=== PATIENT | female | born 1950 | race Caucasian/White ===

== ENCOUNTER 2023-08-23 10:07 | Emergency (ER) | payer BC, SELFPAY ==
[2023-08-23 10:09] VITALS: BP 149/80; PULSE 82; RESP 18; TEMP 36.7; O2SAT 99; BMI 27.8
--- NOTE | 2023-08-23 10:26 | CRLHL7_ITS ---
For Patients: As a result of the Century Cures Act, medical imaging exams and procedure reports are released immediately into your electronic medical record. You may view this report before your referring provider. If you have questions, please contact your health care provider. Indication: Fall, hit chin Technique: Helical axial sections were obtained through the facial skeleton, mandible and adjacent structures without intravenous contrast material. Data was reformatted not only in axial but also coronal planes. Comparison: None Findings: No fracture is demonstrated in the facial skeleton or mandible. Minimal swelling along the midline mandibular subcutaneous fat may be posttraumatic. The orbits and their contents are normal in appearance. There is no evidence for penetrating injury to the ocular globes. The lenses are situated in their normally expected anterior locations. No radiodense or metallic foreign body is demonstrated. Moderate mucosal thickening in the right maxillary sinus and mild mucosal thickening in the left maxillary sinus. Trace mucosal thickening in the sphenoid sinuses. The frontal sinuses and ethmoid air cells are clear. Rightward deviation of the nasal septum with small leftward septal spur. The visualized portions of the brain are normal in appearance. Impression: 1. No facial bone fracture. 2. Minimal swelling along the midline mandibular subcutaneous fat may be posttraumatic. Please note that the imaging field of view did not include the entire chin soft tissues. 3. Moderate mucosal thickening in the right maxillary sinus and mild mucosal thickening in left maxillary sinus. 4. Rightward deviation of the nasal septum with small leftward septal spur. Please note that all CT scans at this facility use dose modulation, iterative reconstruction, and/or weight-based dosing when appropriate to reduce radiation dose to as low as reasonably achievable. Dictated by Pedro Mojica MD @ 08/23/2023 12:08:57 PM (Electronically Signed)
--- NOTE | 2023-08-23 10:26 | CRLHL7_ITS ---
For Patients: As a result of the Century Cures Act, medical imaging exams and procedure reports are released immediately into your electronic medical record. You may view this report before your referring provider. If you have questions, please contact your health care provider. INDICATION: Fall, hit chin COMPARISON: none TECHNIQUE: A CT volumetric acquisition was performed of the brain without IV contrast. Please note that all CT scans at this facility use dose modulation, iterative reconstruction, and/or weight-based dosing when appropriate to reduce radiation dose to as low as reasonably achievable. FINDINGS: The CT images reveal a normal appearance of the cerebral ventricles and basal cisterns. There is no evidence of intracranial hemorrhage, tissue infarction or mass effect. The mastoid air cells and middle ear cavities are clear. The calvarium appears intact. There is normal aeration of the visualized paranasal sinuses. IMPRESSION: Negative head CT. Please note that all CT scans at this facility use dose modulation, iterative reconstruction, and/or weight-based dosing when appropriate to reduce radiation dose to as low as reasonably achievable. Dictated by Pedro Ramos MD @ 08/23/2023 12:08:35 PM (Electronically Signed)
--- NOTE | 2023-08-23 11:37 | ED.GENADULT ---
HPI - General Adult General Date Seen: 08/23/23 Chief complaint: Laceration/Wound Stated complaint: Fall, chin lac Time Seen by Provider: 08/23/23 10:10 Source: patient Mode of arrival: ambulatory Limitations: no limitations History of Present Illness HPI narrative: Patient is a 73-year-old female with a history of bilateral hip replacements, high blood pressure presenting to the emergency department for a fall and laceration under her chin. She states she was running to the gym because it was cold outside when she slipped and fell landing forward. She total her head backwards while she was falling in attempt to keep herself from hitting her face. She did hit her chin on the asphalt. She then went into the gym was feeling all right but recommended to come to the emergency department for evaluation. She is not on any blood thinners. Denies lightheadedness, dizziness, headache, weakness, numbness. Her is here with her aunt she states she is acting normally. The bleeding is controlled at this time. No other concerns noted. Related Data Home Medications Medication Instructions Recorded Confirmed betamethasone, augmented 0.05 % topical 08/23/23 lotion estradiol 10 mcg vaginal tablet 10 mcg vaginal 2XW 08/23/23 08/23/23 losartan 100 mg tablet 100 mg PO DAILY 08/23/23 08/23/23 losartan 50 mg tablet 50 mg PO DAILY 08/23/23 08/23/23 metronidazole 0.75 % topical cream 1 applic topical BID 08/23/23 08/23/23 minoxidil 2.5 mg tablet 1.25 mg PO DAILY 08/23/23 08/23/23 pravastatin 20 mg tablet 20 mg PO QPM 08/23/23 08/23/23 tacrolimus 0.1 % topical ointment topical QPM 08/23/23 Allergies Allergy/AdvReac Type Severity Reaction Status Date / Time lactose Allergy Mild bloated, Verified 08/23/23 10:15 diarrhea Review of Systems Status of ROS: Reports: 10 or more systems reviewed and unremarkable except as noted in History and below [facility] Medical History Rosacea ?L71.9 - Rosacea, unspecified (ICD-10) Hair loss ?L65.9 - Nonscarring hair loss, unspecified (ICD-10) Hypertension ?I10 - Essential (primary) hypertension (ICD-10) Hyperlipemia ?E78.5 - Hyperlipidemia, unspecified (ICD-10) Social History Smoking Status: Former smoker What tobacco products do you use: cigarettes Smoking packs per day: 2 Smoking cigarettes per day: 40.0 Years smoked: 20 Smoking pack-years: 40.00 Do you use any of these nicotine containing products: None Second hand tobacco smoke exposure: No How often do you have a drink containing alcohol: 2-3 times a week AUDIT-C Alcohol total score: 3 Non-prescribed substance use: denies use Exam Narrative: Exam Narrative: Const: Well-nourished, Well-developed, in mild distress Eyes: PERRL, no conjunctival injection, and symmetrical lids HENT: Atraumatic external nose and ears. Moist mucous membranes. Small 0.5 cm laceration underneath the chin Neck: Symmetric, trachea midline, No thyromegaly. CVS: RRR, No murmurs or gallops. Peripheral pulses 2+ and equal in all extremities RESP: Unlabored respiratory effort. Clear to auscultation bilaterally. GI: Nontender/Nondistended, No rebound or guarding. MSK:Extremities w/o deformity, Normal Active ROM Skin: Warm, Dry. No rashes. Neuro: Normal Muscle tone, No focal neurological deficits. Psych: Awake, Alert, & Oriented x3. Appropriate mood and affect. Const: Vital Signs, click to edit/add: Vital Signs - 24 hr 08/23/23 10:09 Temperature 98.1 F Pulse Rate [Pulse Oximeter] 82 Respiratory Rate 18 Blood Pressure [Ri ght Upper Arm] 149/80 H Pulse Oximetry 99 Oxygen Delivery Me thod Room Air Course Vital Signs Vital signs: Initial Vital Signs Temperature 98.1 F 08/23/23 10:09 Temperature Source Temporal Artery Scan 08/23/23 10:09 Pulse Rate 82 08/23/23 10:09 Respiratory Rate 18 08/23/23 10:09 Blood Pressure 149/80 H 08/23/23 10:09 Blood Pressure Mean 103 08/23/23 10:09 Blood Pressure Position Sitting 08/23/23 10:09 Pulse Oximetry 99 08/23/23 10:09 Oxygen Delivery Method Room Air 08/23/23 10:09 Vital Signs Temperature 98.1 F 08/23/23 10:09 Pulse Rate 82 08/23/23 10:09 Respiratory Rate 18 08/23/23 10:09 Blood Pressure 149/80 H 08/23/23 10:09 Pulse Oximetry 99 08/23/23 10:09 Oxygen Delivery Method Room Air 08/23/23 10:09 Temperature 98.1 F 08/23/23 10:09 Pulse Rate 82 08/23/23 10:09 Respiratory Rate 18 08/23/23 10:09 Blood Pressure 149/80 H 08/23/23 10:09 Pulse Oximetry 99 08/23/23 10:09 Oxygen Delivery Method Room Air 08/23/23 10:09 Medical Decision Making MDM Narrative Medical decision making narrative: Patient 73-year-old female presenting to the emergency department after a fall. Based on her description sounds like it was a mechanical fall. There is no lightheaded or dizziness associated with it before or after the fall. She feels normal at this time. Does not have any neurological symptoms but due to her age we will do a head and facial bones CT to make sure to not cause any small bleeding or fractures. She is not having any neck pain and has full range of motion at this time and I believe a neck CT is necessary. CT has returned showing no concerning abnormalities. I fix her laceration with skin glue after talking to her about doing glue versus stitches. She tolerated this well. Patient we discharged home and she is agreeable with this plan Imaging Data CT scan facial bones: Radiologist's impression: Indication: Fall, hit chin Technique: Helical axial sections were obtained through the facial skeleton, mandible and adjacent structures without intravenous contrast material. Data was reformatted not only in axial but also coronal planes. Comparison: None Findings: No fracture is demonstrated in the facial skeleton or mandible. Minimal swelling along the midline mandibular subcutaneous fat may be posttraumatic. The orbits and their contents are normal in appearance. There is no evidence for penetrating injury to the ocular globes. The lenses are situated in their normally expected anterior locations. No radiodense or metallic foreign body is demonstrated. Moderate mucosal thickening in the right maxillary sinus and mild mucosal thickening in the left maxillary sinus. Trace mucosal thickening in the sphenoid sinuses. The frontal sinuses and ethmoid air cells are clear. Rightward deviation of the nasal septum with small leftward septal spur. The visualized portions of the brain are normal in appearance. Impression: 1. No facial bone fracture. 2. Minimal swelling along the midline mandibular subcutaneous fat may be posttraumatic. Please note that the imaging field of view did not include the entire chin soft tissues. 3. Moderate mucosal thickening in the right maxillary sinus and mild mucosal thickening in left maxillary sinus. 4. Rightward deviation of the nasal septum with small leftward septal spur. Please note that all CT scans at this facility use dose modulation, iterative reconstruction, and/or weight-based dosing when appropriate to reduce radiation dose to as low as reasonably achievable. Dictated by Pedro Mojica MD @ 08/23/2023 12:08:[address] scan - head: Radiologist's impression: INDICATION: Fall, hit chin COMPARISON: none TECHNIQUE: A CT volumetric acquisition was performed of the brain without IV contrast. Please note that all CT scans at this facility use dose modulation, iterative reconstruction, and/or weight-based dosing when appropriate to reduce radiation dose to as low as reasonably achievable. FINDINGS: The CT images reveal a normal appearance of the cerebral ventricles and basal cisterns. There is no evidence of intracranial hemorrhage, tissue infarction or mass effect. The mastoid air cells and middle ear cavities are clear. The calvarium appears intact. There is normal aeration of the visualized paranasal sinuses. IMPRESSION: Negative head CT. Please note that all CT scans at this facility use dose modulation, iterative reconstruction, and/or weight-based dosing when appropriate to reduce radiation dose to as low as reasonably achievable. Dictated by Pedro Ramos MD @ 08/23/2023 12:08:35 PM Discharge Plan Discharge Clinical Impression: Laceration Patient Disposition: Home, Self-Care Condition: Stable Instructions: Skin Adhesive Care (ED) Additional Instructions: The glue will dissolve on its own.. For next 6 months, once fluids gone, whenever you goes outside put a tab of sunscreen over the laceration site to improve scar appearance. Topical antibiotics are not necessary at this time. Patient can shower but do not scrub the area for at least 1 week. Prescriptions: No Action losartan 50 mg tablet 50 mg PO DAILY minoxidil 2.5 mg tablet 1.25 mg PO DAILY betamethasone, augmented 0.05 % lotion topical tacrolimus 0.1 % ointment topical QPM metronidazole 0.75 % cream 1 applic topical BID pravastatin 20 mg tablet 20 mg PO QPM losartan 100 mg tablet 100 mg PO DAILY estradiol 10 mcg tablet 10 mcg vaginal 2XW Follow Up/Referrals: Malgorzata Altman MD [Primary Care Provider] - Stand Alone Forms: [facility] Info Instructions Procedures Laceration Chin: Name of person performing procedure: Cuco Jeffers Site: face (Chin) Size (cm): 0.5 Description: linear and clean Depth: simple, single layer Pre-repair: wound explored, irrigated extensively and deep structures intact Skin layer closed with: other (Dermabond)
== END 2023-08-23 12:37 | disposition home or self-care (01) ==
PROVIDERS: Emergency Provider Student in an Organized Health Care Education/Training Program; PCP Family Medicine
DX: S01.81XA Laceration without foreign body of other part of head, initial encounter (principal); W00.0XXA Fall on same level due to ice and snow, initial encounter
CPT/HCPCS: 12011; 70450; 70486; 99283

== ENCOUNTER 2025-06-15 22:35 | Emergency (ER) | payer BC, SELFPAY ==
--- OUTSIDE RECORDS SUMMARY | 2025-06-15 22:37 | XMS_ITS | Clinical Summary ---
Author Organization [facility] Address [address] [place] [address] Care Team Providers Care Steam Press Tender Name Role Phone Deanna Ramesh Unavailable [phone] Austen Pretty MD Unavailable [phone] AnupamaMalgorzata almanzar MD Primary Care Provider Allergies Active Allergy Reactions Criticality Noted Date Comments Lactose GI Upset 04/29/2013 blows up like a balloon and have gas Pt states. Medications multivitamin (MVI) tablet Take 1 tablet by mouth once daily. 0 7 Active calcium carbonate-vit D3, 600 mg-400 units, (CALTRATE PLUS 600 MG-400 UNIT TABLET) tablet Take 1 Tab by mouth. Active betamethasone,augm ented dipropionate 0.05% (DIPROLENE LOTION 0.05%) lotion APPLY LOTION TWICE DAILY ON MONDAY, MONDAY AND Monday 3 Active minoxidiL (LONITEN) 2.5 mg tab Take 1.25 mg by mouth once daily. 3 Active tacrolimus 0.1% (PROTOPIC) 0.1 % ointment APPLY TO SCALP AREA AT BEDTIME 3 Active metroNIDAZOLE 0.75 % cream Apply topically to affected area(s) two times daily. 4 Active acyclovir (ZOVIRAX) 800 mg tabletIndications: Oral herpes Take 1 Tablet (800 mg) by mouth three times daily. 30 Tablet 5 4 Active estradioL (VAGIFEM) 10 mcg tab vaginal tabletIndications: Menopause INSERT 1 TAB IN VAGINA TWICE A WEEK MONDAY AND MONDAY 26 Tablet 4 4 Active losartan (COZAAR) 50 mg tabletIndications: Hypertension, unspecified type Take 1 Tablet (50 mg) by mouth once daily. 90 Tablet 3 4 Active pravastatin (PRAVACHOL) 40 mg tabletIndications: Hyperlipidemia, unspecified hyperlipidemia type Take 1 Tablet (40 mg) by mouth at bedtime. 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 Pretty DDD (degenerative disc disease), lumbar 12/05/19 Overview (12/05/2012): Slight scoliosis convexed to the right Mixed hyperlipidemia 10/13/2011 Overview (04/29/2013): Fish Oil and Flax seeds, discontinued statin due to leg pain Chronic constipation 10/11/2011 Overview (04/29/2013): She has baseline of constipation however improving the past 2 months. HTN (hypertension) 10/11/2011 Overview (04/29/2013): Pt takes lisinopril daily Oral herpes 10/11/2011 Overview (04/29/2013): last reocurrence 1 month ago Acyclovir PRN Resolved Problems Problem Noted Date Diagnosed Date Resolved Date Prepatellar bursitis left knee 08/22/2013 03/12/2014 Low back pain 07/28/2011 04/29/2013 Encounters Date Type Department Care Team Description 05/07/2025 8:20 AM CDT Ancillary Procedure [facility] [address] [place] [address] 05/06/2025 Travel 03/27/2025 Telephone [facility] [address] [facility] [place] [phone] Shelli Martinez AuD Questions (hearing aide supplies ) 03/25/2025 9:45 AM CDT Office Visit [facility] [address] [place] [address] Jerald Sevilla, LIV Follow Up (Right great toenail concern) 03/24/2025 Travel 03/24/2025 Telephone [facility] [address] [place] [address] Jerald Sevilla DPCarla Questions (Toe Concerns) from Last 3 Months Immunizations Immunization Administration Dates Next Due COVID-19 vaccine (AT [employer] NTAffectiva 30mcg/0.3mL) DAJUAN KIM 08/11/2021,01/15/2021,12/25/2020 Influenza A (H1N1), Inactivated 10/21/2009 Influenza, High-dose Inactivated 09/13/2016,09/23 Influenza, IIV3 (Age 6-35 mos) 07/11/2011 Influenza, IIV3 (Age >=3 years) 10/11/2013,10/12,07/11/2011 Influenza, IIV4 10/14/2014 Influenza, Inactivated AIIV4 (Age 65+ Years) Preserv Free 07/26/2023,07/09/2022,07/26/2021 Influenza, Inactivated IIV3 (Age 65+ Years) Preserv Free 07/08/2024,07/12/2020,09/27/2019,07/16,09/19/2017 Pneumococcal Conj 20-valent (Prevnar 20) 11/01/2024 Pneumococcal Poly,23-Valent (Pneumovax) 01/31/2017 Pneumococcal conj 13-Valent (Prevnar 13) 10/20/2015 RSV, Bivalent Vaccine Recons tituted (Abrysvo 120MCG/0.5mL) 11/01/2024 Tdap 10/09/2023,10/11/2013,10/23/2003 Zoster (Shingrix-RZV, recombinant) 01/01/2019, Zoster (Zostavax-ZVL, live) 10/12/2012 Family History Medical History Relation Name Comments Other Father Parkinson's Cancer-colon Maternal Grandmother Cancer-colon Mother Diabetes Mother Hyperlipidemia Mother Other Mother dementia Stroke Mother Cancer-breast Paternal Grandmother Diabetes Sister 1 plus cousin Other Sister 2 2 with spinal s tenosis Anesthesia Problem No Family History Blood Disease No Family History Relation Name Status Comments Father (Age 90) Parkinson' s Maternal Grandmother Mother (Age 88) Paternal Grandmother Sister 1 Sister 2 Social History Tobacco Use Types Packs/Day Years Used Date Smoking Tobacco: Former Cigarettes 2 18 0 10/23/1966 - 10/23/1984 Smokeless Tobacco: Never Tobacco Cessation:Counseling Given: Yes Alcohol Use Standard Drinks/Week Comments Yes 0 (1 standard drink = 0.6 oz pure alcohol) 0-5 glasses of wine several times per week PHQ-2 Answer Date Recorded PHQ-2 TOTAL SCORE 0 10/09/2023 Social Connections Answer Date Recorded Do you often feel lonely or isolated from those around you? 0 10/18/2024 Financial Resource Strain Answer Date R ecorded Difficulty of Paying Living Expenses 3 10/18/2024 Difficulty of Paying Living Expenses Not on file 10/18/2024 Food Insecurity Answer Date Recorded Do you worry your food will run out before you are able to buy more? 1 10/18/2024 Transportation Needs Answer Date Record ed Does lack of transportation keep you from medica l appointments? 1 10/18/2024 Does lack of transportation keep you from work, meetings or getting things that you need? 1 10/18/2024 Housing Stability Answer Date Recorded What is your housing situation today? 1 10/18/2024 Utilities Answer Date Recorded Do you have trouble paying f or utilities (for example, heat, electricity, water, phone)? 1 10/18/2024 Comments No Sex and Gender Information Value Date Recorded Sex Assigned at Not on file Legal Sex Female 5:25 AM CHILD AND ADOLESCENT PSYCHIATRIST Gender Identity Not on file Sexual Orientation Not on file Occupation Industry Job Start Date Job End Date Not on file Not on file Not on file Not on file Obstetrics History Para Term AB IAB SAB Ectopic Multiple Livin g Live Births 2 2 2 2 Date Outcome GA Total Labor Labor/2nd/3rd Weight Sex Type Anes PTL Chiquita A1 A5 Name Clin 35w0d 33w0d Last Filed Vital Signs Vital Sign Reading Time Taken Comments Blood Pressure 120/60 02/28/2025 11:52 AM CDT Pulse 94 02/28/2025 11:52 AM CDT Temperature 37.2 C (99 F) 03/27/2020 2:44 PM CDT Respiratory Rate 20 05/03/2013 12:1 5 PM CDT Oxygen Saturation 98% 02/28/2025 11: 52 AM CDT Inhaled Oxygen Concentration - - Weight 80.2 kg (176 lb 12.8 oz) 10/18/2024 9:52 AM CHILD AND ADOLESCENT PSYCHIATRIST Height 167.6 cm (5' 6) 10/18/2024 9:52 AM CHILD AND ADOLESCENT PSYCHIATRIST Body Mass Index 28.54 10/18/2024 9:52 AM CHILD AND ADOLESCENT PSYCHIATRIST Plan of Treatment Health Maintenance Due Date Last Done Comments Depression screening for age 12+ 10/11/2024 10/11/2023, 10/09/2023, 10/04/2021, Additional history exists COVID-19 vaccine series ( season) 2025 07/08/2024, 08/07/2023, 07/09/2022, Additional history exists Influenza Vaccine (#1) 2025 , 07/26/2023, 07/09/2022, Additional history exists Colonoscopy through age 75 08/04/202508/04, 08/04/2020, 07/29/2015, Additional history exists BMI (ht and wt on same day) for age 18+ 10/18/2025 10/18/2024, 09/16/2024, 01/04/2024, Additional history exists Lipids for age 45-75 10/18/2029 10/18/2024, 10/09/2023, 10/05/2022, Additional history exists Tetanus booster 10/09/2033 10/09/2023, 09/23, 10/23/2003, Additional history exists Zoster (shingles) series for age 50+ Completed 01/01/2019, 10/08/2018, 10/12/2012 Hepatitis C screening for age 18-79 Completed 10/31/2019 DEXA/DXA scan for age 65+ Completed 2022, 09/27/2018, 10/22/2013 Pneumococcal series for age 50+ Completed 11/01/2024, 01/31/2017, 10/20/2015 RSV vaccine for adults or Completed 11/01/2024 Hepatitis B series for 19+ Aged Out N o longer eligible based on patient's age to complete this topic Medical Devices Implanted Type Area Telecasting Engineer Device Identifier Shelf Expiration Date Model / Serial / Lot [id number] 165bone Canclls Crushed 30cc [[id number]] Implanted:Qty: 1 on 04/30/[address] [facility] [employer] 12/07/2015 [id number] / [id number] / Screw Open Polyaxial 6.5x45mm 5.5mm Titnm - [id number] Implanted:Qty: 4 on 04/30/2013 by Austen Pretty MD at [facility] N/A: Spine [employer]ine [id number] # / / Implnt Open Closure Top 5.5mm Titnm Nichelle - [id number] Implanted:Qty: 4 on 04/30/2013 by Austen Pretty MD at [facility] N/A: Spine [employer] Spine 3301-1# / / Melo Pre-Bent 5.5x40mm Blue Titnm - [id number] Implanted:Qty: 2 on 04/30/2013 by Austen Pretty MD at [facility] N/A: Spine [employer] Spine [id number]# / / Procedures Procedure Name Priority Date/Time Associated Diagnosis Comments XR MAMMO LISA BILAT SCREEN Routine 05/07/2025 8:37 AM CDT Visit for screening mammogram LIPID PANEL W REFLEX MEASURED LDL Routine 10/18/2024 10:41 AM CHILD AND ADOLESCENT PSYCHIATRIST Hyperlipidemia, unspecified hyperlipidemia type XR DXA BONE DENSITY PERIPHERAL Routine 10/18/2023 8:52 AM CHILD AND ADOLESCENT PSYCHIATRIST Menopause COLONOSCOPY 08/04/2020 8:31 AM CDT ANTI HCV Routine 10/31/2019 8:18 AM CHILD AND ADOLESCENT PSYCHIATRIST Encounter for hepatitis C screening test for low risk patient from Last 3 Months or Most Recently Relevant to Health Maintenance Results * XR MAMMO LISA BILAT SCREEN (05/07/2025 8:37 AM CDT) Anatomical Region Laterality Modality BREASTS, Breast Left, Breast Right Bilateral Mammography Impressions 05/07/2025 3:40 PM CDT There is no radiographic evidence for malignancy. Recommend annual mammograms. MAMMOGRAM ASSESSMENT: ACR 1 Negative PATIENTS: You will also receive a letter with your examination results in an easy to read format. If you have questions about your results, please contact your referring provider. Narrative 05/07/2025 3:40 PM CDT For Patients: As a result of the Century Cures Act, medical imaging exams and procedure reports are released immediately into your electronic medical record. You may view this report before your referring provider. If you have questions, please contact your health care provider. XR MAMMO LISA BILAT SCREEN [[id number]] CLINICAL HISTORY: This is an asymptomatic 74 y.o. patient. INDICATION FOR EXAM: Mammogram Screening. TECHNIQUE: CC and MLO views were obtained. This study was evaluated with the assistance of Computer-Aided Detection. Breast Tomosynthesis was used in interpretation. COMPARISON FILM: Yes 05/06/24 [facility] 04/27/23 [facility] FINDINGS: There are scattered areas of fibroglandular density. There are no dominant masses, suspicious micro calcifications or areas of architectural distortion. us Malgorzata Altman MD MAMMO Final R esult * (ABNORMAL) LIPID PANEL W REFLEX MEASURED LDL (10/18/2024 10:41 AM CHILD AND ADOLESCENT PSYCHIATRIST) CHOLESTEROL, TOTAL 195 <200 mg/dL [facility] HDL CHOLESTEROL 59 > OR = 50 mg/dL [facility] TRIGLYCERIDES 143 <150 mg/dL [facility] LDL-CHOLESTEROL 110(H) mg/dL (calc) [facility] Comment: Reference range: <100 Desirable range <100 mg/dL for primary prevention; <70 mg/dL for patients with CHD or diabetic patients with > or = 2 CHD risk factors. LDL-C is now calculated using the Candice calculation, which is a validated novel method providing better accuracy than the Friedewald equation in the estimation of LDL-C. Hay SS et al. AGNIESZKA. 2013;310(19): 9034-3390 (http://education.Eyewitness Surveillance/faq/JED931) CHOL/HDLC RATIO 3.3 <5.0 (calc) [facility] NON HDL CHOLESTEROL 136(H) <130 mg/dL (calc) [facility] Comment: For patients with diabetes plus 1 major ASCVD risk factor, treating to a non-HDL-C goal of <100 mg/dL (LDL-C of <70 mg/dL) is considered a therapeutic option. Blood BLOOD SPECIMEN / Unknown 10/18/2024 10:41 AM CHILD AND ADOLESCENT PSYCHIATRIST 10/18/2024 10:42 AM CHILD AND ADOLESCENT PSYCHIATRIST Malgorzata Altman MD CHEMISTRY Final R esult [employer] [facility] [address] [place] [address], [facility] [address] [place] [address] * XR DXA BONE DENSITY PERIPHERAL (10/18/2023 8:52 AM CHILD AND ADOLESCENT PSYCHIATRIST) Anatomical Region Laterality Modality ARMS Other Impressions 10/18/2023 4:45 PM CHILD AND ADOLESCENT PSYCHIATRIST Normal bone density. RECOMMENDATIONS: The National Osteoporosis Foundation recommends pharmacologic treatment for patients with T-scores of -2.5 or less, patients with prior history of fragility fractures, or patients with 10-year probability of greater than 3% at hips or greater than 20% of suffering major osteoporotic fractures. Recommend continued optimization of calcium and vitamin D intake through dietary means and/or supplementation and regular exercise. Repeat scan recommended in 3-5 years. Leslie Chavez PA-C [facility] 10/18/2023 Narrative 10/18/2023 4:45 PM CHILD AND ADOLESCENT PSYCHIATRIST For Patients: Results are automatically released to your [facility] ([employer]) account once available, in compliance with federal regulations. This means that you may see your results before your provider has had a chance to review them. Please allow 2-3 business days for your provider to comment on the results. XR DXA Bone Mineral Density (BMD) EXAM LOCATION: [address] [address] PATIENT NAME: Joi Saravia DATE OF : 1950 EXAM DATE: 10/18/2023 REQUESTING PROVIDER: Malgorzata Altman MD GENDER AT : female HEIGHT: 5' 6.25 (10/09/2023) WEIGHT: 173 lb 3.2 oz (10/09/2023) MENOPAUSAL STATUS: Postmenopausal RACE/ETHNICITY: White RISK FACTORS: Smoking (prior) and White Race CURRENT MEDICATION FOR BONE LOSS: NONE INDICATION: Post-Menopause and Follow-up of normal DXA COMPARISON DATE(S): 2018 DXA scans are compared to prior studies for a patient only when the two (or more) studies were performed on the same scanner. It is not possible to compare data generated on one scanner to data from another because there are not standards in DXA equipment. This applies even if the two scanners are made by the same yeast fermentation attendant. PROCEDURE: Dual-energy x-ray absorptiometry performed with routine technique. Reporting is completed in the form of a T-score. The T-score represents the standard deviation from peak bone mass based on young healthy adult. A Z-score is used for diagnosis in premenopausal women, and for men under the age of 50. FINDINGS RESULT FOREARM Left Forearm distal radius BMD: 0.791 g/cm2 T-Score: - 0.9 Z-Score: + 1.2 Change from prior in 2018: Decrease 0.100%. WHO criteria: Normal: T-score at or above -1 SD Osteopenia: T-score between -1.1 and -2.4 SD Osteoporosis: T-score at or below -2.5 SD us Malgorzata Altman MD DEXA Final R esult * COLONOSCOPY (08/04/2020 8:31 AM CDT) 08/04/2020 8:31 AM CDT Narrative Transcriptions Hay Leung MD - 08/04/2020 9:21 AM CDT Patient Name: Joi Saravia Procedure Date: 08/04/2020 Gender: Female Date of : 1950 Admit Type: Outpatient Procedure: Colonoscopy Proceduralist: Hay Leung MD , Bre Hutchins (Nurse) Indications/Pre-Op Diagnosis: Surveillance: Personal history ofadenomatous polyps on last colonoscopy 5 years ago, Last colonoscopy: July 2015 Medications: Fentanyl 200 micrograms IV, Midazolam 2 mgIV, The level of sedation administered wasmoderate Procedure Description: The patient had risks, benefits and alternatives explained to andgave informed consent. The patient had a stable cardiopulmonary status and judged an adequate candidate for conscious sedation. The [id number] was passed through the anus and advanced tothe cecum, identified by appendiceal orifice and ileocecal valve. The colonoscopy was performed without difficulty. The patient toleratedthe procedure well. The quality of the bowel preparation was good. The ileocecal valve, appendiceal orifice, and rectum were photographed. Complications: No immediate complications. Estimated Blood Loss & Specimen: Estimated blood loss: none. Specimen collected - Yes and sent to Laboratory Findings: The perianal and digital rectal examinations were normal. A 3 mm polyp was found in the ascending colon. The polyp was sessile. The polyp was removed with a cold biopsy forceps. Resection and retrieval were complete. The exam was otherwise without abnormality on direct and retroflexion views. Impressions/Post-Op Diagnosis: - One 3 mm polyp in the ascending colon, removed with a cold biopsy forceps. Resected and retrieved. - The examination was otherwise normal on direct and retroflexionviews. Recommendation: - Patient has a contact number available for emergencies. The signsand symptoms of potential delayed complications were discussed with the patient. Return to normal activities tomorrow. Written discharge instructions were provided to the patient. - Resume previous diet. - Continue present medications. - Await pathology results. - Repeat colonoscopy in 5 years for surveillance. Moderate Sedation: Moderate (conscious) sedation was administered by the endoscopy nurse and supervised by the endoscopist. The following parameters were monitored: oxygen saturation, heart rate, respiratory rate, blood pressure, adequacy of pulmonary ventilation and reponse to care. Please refer to the the medical center'ts medical record flowsheets and nursing notes for moderate sedation details. Total physician intraservice time was 20 minutes. Hay Leung MD 08/04/2020 9:21:39 AM This report has been signed electronically. Note Initiated On: 08/04/2020 8:31 AM Procedure Code(s): --- Professional --- 25374, Colonoscopy, flexible; with biopsy, single or multiple Diagnosis Code(s): --- Professional --- Z86.010, Personal history of colonicpolyps K63.5, Polyp of colon CPT copyright 2019 [employer]. All rights reserved. The codes documented in this report are preliminary and upon fabric awning repairer reviewmay be revised to meet current compliance requirements. Scope In: 9:00:41 AM Scope Withdrawal Time 0 hours 9 minutes 12 seconds Scope Out: 9:18:15 AM us Hay Leung MD PROCEDURE ORD Final Res ult * ANTI HCV (10/31/2019 8:18 AM CHILD AND ADOLESCENT PSYCHIATRIST) HEPATITIS C ANTIBODY Non-React ernesto Non-React ernesto 10/31/2019 2:00 PM CHILD AND ADOLESCENT PSYCHIATRIST [facility] Comment:Antibodies to HCV no t detected; does not exclude the possibility of exposure to HCV. Blood BLOOD SPECIMEN / Unknown Venipuncture / Unknown 10/31/2019 8:18 AM CHILD AND ADOLESCENT PSYCHIATRIST 10/31/2019 8:21 AM CHILD AND ADOLESCENT PSYCHIATRIST us Malgorzata Altman MD SEND OUTS Final R esult [facility] [address] [place] [address], [place] from Last 3 Months or Most Recently Relevant to Health Maintenance Insurance [facility] MEDIC[facility] PART A HB ONLY BLUE [facility] WC WORKERS COMP Member Subscriber Plan / Payer (Ef fective 2009-Present) Name:Joi Alan Relation to Subscriber:Employee Name:[employer] Date of :2000 (Home) (Work) Address: [place] [address] Payer ID:Not on file Group ID:Not on file Type:Not on file rickey castellanos Address: [facility] [address] [place] [address] [employer] [facility] FED EMP * Guarantor: [facility] CONTRACT,[facility] 2011 Account Type Relation to Patient Date of Phone Billing Address Contract [address] [address] Advance Directives Documents on File Type Date Recorded Patient Coil Winder Strap Expl anation Healthcare Directive 05/07/2013 11:15 AM * Full Code (Latest Code Status on File) Date Activated Date Inactivated Comments 04/30/2013 2:53 PM 05/03/2013 6:09 PM * Full Code Date Activated Date Inactivated Comments 04/30/2013 6:55 AM 04/30/2013 2:53 PM Care Teams Steam Press Tender Relationship Specialty Start Date End Date Malgorzata Altman MD [address] [place] [address] PCP - General Family Practice 09/27/18 Deanna Ramesh AuD Audiology 10/22/13 Austen Pretty MD Surgery - Orthopedics 10/14/14
--- OUTSIDE RECORDS SUMMARY | 2025-06-15 22:37 | XMS_ITS | Clinical Summary ---
Author Organization [place] Address [address] [facility] [place] [address] Care Team Providers Care Resolution Expert Name Role Phone [facility], [facility] Primary Care Provider Allergies Active Allergy Reactions Criticality Noted Date Comments Lactose 09/01/2017 Medications estradiol (VAGIFEM) 10 MCG TABS vaginal tablet INSERT 1 TABLET INTO THE VAGINA EVERY MONDAY AND MONDAY. Will call for refill 6 Active losartan (COZAAR) 50 MG tablet Take 50 mg by mouth daily 8 Active simvastatin (ZOCOR) 20 MG tablet Take 20 mg by mouth At Bedtime 8 Active pantoprazole (PROTONIX) 40 MG EC tablet Take 1 tablet by mouth 2 times daily (before meals) 8 Active acyclovir (ZOVIRAX) 800 MG tablet Take 800 mg by mouth 3 times daily as needed for cold sore treatment 8 Active calcium carbonate 600 mg-vitamin D 400 units (CALTRATE) 600-400 MG-UNIT per tablet Take 1 tablet by mouth 2 times daily ADMIN AT LUNCH AND at bedtime PER PATIENT Active Family History Medical History Relation Comments Parkinsonism Father Diabetes Mother Relation Status Comments Father Mother Social History Tobacco Use Types Packs/Day Years Used Date Smoking Tobacco: Never Assessed Comments Unknown Sex and Gender Information Value Date Recorded Sex Assigned at Not on file Legal Sex Female 4:35 AM HOSPITALIST MEDICAL DIRECTOR Gender Identity Not on file Sexual Orientation Not on file Last Filed Vital Signs Vital Sign Reading Time Taken Comments Blood Pressure 120/62 11/05/2018 10:17 AM HOSPITALIST MEDICAL DIRECTOR Pulse 64 11/04/2018 11:48 AM HOSPITALIST MEDICAL DIRECTOR Temperature 36.3 C (97.3 F) 11/05/2018 10:17 AM HOSPITALIST MEDICAL DIRECTOR Respiratory Rate 16 11/05/2018 10:17 AM HOSPITALIST MEDICAL DIRECTOR Oxygen Saturation 99% 11/05/2018 10:17 AM HOSPITALIST MEDICAL DIRECTOR Inhaled Oxygen Concentration - - Weight 77.6 kg (171 lb 1.6 oz) 11/04/2018 12:31 PM HOSPITALIST MEDICAL DIRECTOR Height 170.2 cm (5' 7.01) 11/04/2018 12:[address] Body Mass Index 26.79 11/04/2018 12:31 PM HOSPITALIST MEDICAL DIRECTOR Plan of Treatment Not on file Insurance MEDICARE [facility] [employer] Advance Directives For more information, please contact: [phone] * Full Code (Latest Code Status on File) Date Activated Date Inactivated Comments 11/04/2018 12:46 PM 11/05/2018 12:46 PM Question Answer Comments Code status determined by: Discussion with jonna nt/legal decision maker Care Teams Resolution Expert Relationship Specialty Start Date End Date [facility], [address] [address] PCP - General 11/04/18
[2025-06-15 22:40] VITALS: BP 194/84; PULSE 79; RESP 16; TEMP 36.6; O2SAT 98; BMI 29.7
[2025-06-15] MEDS: IBUPROFEN 200 MG TABLET 600 MG PO (23:21)
[2025-06-15 23:30] VITALS: BP 165/74; PULSE 81; RESP 16; TEMP 36.6; O2SAT 98
[2025-06-15 23:44] VITALS: BP 165/74; PULSE 81; RESP 16; TEMP 36.6
--- NOTE | 2025-06-16 03:22 | ED.EYEPROB ---
HPI - Eye Problem General Date Seen: 06/16/25 Chief complaint: Eye Problems Stated complaint: right eye pain Time Seen by Provider: 06/15/25 22:53 Source: patient and family Mode of arrival: ambulatory Limitations: no limitations History of Present Illness HPI Narrative: Patient is a very nice lady who presents here after putting some lotion that was post to be on her head in her right eye, she was getting ready for a trip to [place], was a little bit stressed over this, and put the drops in her right eye, her right eye is irritated now, she feels like she might have something underneath her upper lid. Poison control was contacted and said just to wash her eye out. She does not were glasses or contacts. She is [age] vision in both eyes. chief complaint: eye pain and eye redness Onset (ago): minute(s) Onset description: sudden Location: right eye Eye Symptoms: foreign body sensation Place: home Mechanism: chemical exposure Severity: moderate Associated symptoms: none Treatments Prior to Arrival: irrigated eye Related Data Patient tetanus UTD: Yes Home Medications ?Medication ?Instructions ?Recorded ?Confirmed betamethasone, augmented 0.05 % topical 08/23/23 lotion estradiol 10 mcg vaginal tablet 10 mcg vaginal 2XW 08/23/23 08/23/23 losartan 100 mg tablet 100 mg PO DAILY 08/23/23 08/23/23 losartan 50 mg tablet 50 mg PO DAILY 08/23/23 08/23/23 metronidazole 0.75 % topical cream 1 applic topical BID 08/23/23 08/23/23 minoxidil 2.5 mg tablet 1.25 mg PO DAILY 08/23/23 08/23/23 pravastatin 20 mg tablet 20 mg PO QPM 08/23/23 08/23/23 tacrolimus 0.1 % topical ointment topical QPM 08/23/23 Allergies Allergy/AdvReac Type Severity Reaction Status Date / Time lactose Allergy Mild bloated, Verified 08/23/23 10:15 diarrhea Review of Systems Status of ROS: Reports: 10 or more systems reviewed and unremarkable except as noted in History and below [facility] Medical History Rosacea ?L71.9 - Rosacea, unspecified (ICD-10) Hair loss ?L65.9 - Nonscarring hair loss, unspecified (ICD-10) Hypertension ?I10 - Essential (primary) hypertension (ICD-10) Hyperlipemia ?E78.5 - Hyperlipidemia, unspecified (ICD-10) Social History Smoking Status: Former smoker What tobacco products do you use: cigarettes Smoking packs per day: 2 Smoking cigarettes per day: 40.0 Years smoked: 20 Smoking pack-years: 40.00 Smoking quit date/years: <= 15 years ago Do you use any of these nicotine containing products: None Second hand tobacco smoke exposure: No How often do you have a drink containing alcohol: 2-3 times a week AUDIT-C Alcohol total score: 3 Non-prescribed substance use: denies use Exam Narrative: Exam Narrative: On examination in room 4, she is in no apparent distress, her right eye is a little bit reddened, over the sclera her conjunctiva quiet bilaterally, no redness discharge there is no lid swelling, extraocular muscles are normal, pupils equal round reactive to light, fluorescein is is stated in her eye after a use tetracaine 2 drops, this took away any discomfort she had her eye, upper lid was everted and checked there is no evidence of foreign body lower lid was also checked no foreign body. No evidence of significant or flourescein uptake to suggest she has an abrasion. Slit lamp was used in examination Const: Vital Signs, click to edit/add: Vital Signs - 24 hr 06/15/25 22:40 06/15/25 23:30 06/15/25 23:44 Temperature 97.9 F 97.9 F 97.9 F Pulse Rate [Pulse Oximeter] 79 81 81 Respiratory Rate 16 16 16 Blood Pressure [Le ft Upper Arm] 194/84 H 165/74 H 165/74 H Pulse Oximetry 98 98 Oxygen Delivery Me thod Room Air Room Air Documenting provider has reviewed patient's vital signs: yes Course Vital Signs Vital signs: Initial Vital Signs Temperature 97.9 F 06/15/25 22:40 Temperature Source Temporal Artery Scan 06/15/25 22:40 Pulse Rate 79 06/15/25 22:40 Respiratory Rate 16 06/15/25 22:40 Blood Pressure 194/84 H 06/15/25 22:40 Blood Pressure Mean 120 H 06/15/25 22:40 Blood Pressure Position Sitting 06/15/25 22:40 Pulse Oximetry 98 06/15/25 22:40 Oxygen Delivery Method Room Air 06/15/25 22:40 Vital Signs Temperature 97.9 F 06/15/25 22:40 Pulse Rate 79 06/15/25 22:40 Respiratory Rate 16 06/15/25 22:40 Blood Pressure 194/84 H 06/15/25 22:40 Pulse Oximetry 98 06/15/25 22:40 Oxygen Delivery Method Room Air 06/15/25 22:40 Temperature 97.9 F 06/15/25 23:44 Pulse Rate 81 06/15/25 23:44 Respiratory Rate 16 06/15/25 23:44 Blood Pressure 165/74 H 06/15/25 23:44 Pulse Oximetry 98 06/15/25 23:30 Oxygen Delivery Method Room Air 06/15/25 23:30 Medications Administered Medications: Discontinued Medications Generic Name Dose Route Start Last Admin Trade Name Freq PRN Reason Stop Dose Admin Ibuprofen 600 mg 06/15/25 23:17 06/15/25 23:21 Ibuprofen 200 Mg Tablet PO 06/15/25 23:18 600 mg ONCE ONE Administration MDM - Eye Problem MDM Narrative Medical decision making narrative: Does not appear there is any issue with her I do believe she has some corneal irritation, we will put her on some antibiotics drops for her eye, she will follow-up as needed basis if worsening. Differential Diagnosis Differential diagnosis: Likely corneal abrasion, conjunctivitis, acute iritis, hyphema, periorbital cellulitis, subconjunctival hemorrhage, glaucoma, corneal ulcer and ruptured globe Medical Records Attestation: I reviewed the patient's medical records. Lab Data Attestation: I reviewed the patient's lab results. Discharge Plan Discharge Clinical Impression: Corneal irritation of right eye Patient Disposition: Home w/ Parent or Adult Condition: Stable Additional Instructions: Use your eye drops as directed over the next 3-4 days this will prevent infection on your trip, I would not use any contacts for couple days if you do use these. Ibuprofen is a good medication also, but I do not think he did herself any damage in your eye, have a great time in her trip. Activity Level: Light activity Discharge Diet: Regular Prescriptions: No Action losartan 50 mg tablet 50 mg PO DAILY minoxidil 2.5 mg tablet 1.25 mg PO DAILY betamethasone, augmented 0.05 % lotion topical tacrolimus 0.1 % ointment topical QPM metronidazole 0.75 % cream 1 applic topical BID pravastatin 20 mg tablet 20 mg PO QPM losartan 100 mg tablet 100 mg PO DAILY estradiol 10 mcg tablet 10 mcg vaginal 2XW Follow Up/Referrals: Malgorzata Altman MD [Primary Care Provider, Family Practice] Stand Alone Forms: [employer] Info Instructions
== END 2025-06-15 23:44 | disposition home or self-care (01) ==
LOC: ED 23:32
PROVIDERS: Emergency Provider Family Medicine; PCP Family Medicine
DX: S05.01XA Injury of conjunctiva and corneal abrasion without foreign body, right eye, initial encounter (principal)
CPT/HCPCS: 84484; 99283; A9270